=== PATIENT | male | born 1995 | race Caucasian/White ===

== ENCOUNTER 2017-03-03 15:12 | Emergency (ER) | payer MEDICAID ==
[~2017-03-03] VITALS: Ht 180.3 cm; Wt 101.5 kg
[2017-03-03 15:22] VITALS: Ht 180.3 cm; Wt 101.5 kg
[2017-03-03] MEDS ORDERED: PRED20TA PO (16:09)
[2017-03-03] MEDS ORDERED: BEN25 PO (16:09)
[2017-03-03] MEDS ORDERED: FAMO-18 PO (16:09)
--- NOTE | 2017-03-03 16:18 | ERD ---
ER Documentation Chief Complaint Date/Time DATE: 03/03/17 TIME: 16:14 Chief Complaint GENERALIZE ITCHY RASH X4 DAYS, UNK CAUSE HPI Patient is a 21-year-old male who presents to the emergency department for generalized rash on his torso and back 4 days. Patient describes a rash to be itchy in nature. Patient states the rash is erythematous and splotchy. Patient states initially he had a small area in his right chest wall however the rash has spread. Patient reports using calamine lotion. Patient denies any new medications, creams, lotions, pets, foods or environments. Patient does recall eating a hotdog before the rash started however he stated that he has had hot dogs from the restaurant before. Patient denies any lip swelling, tongue swelling, throat closure sensation, chest tightness or difficulty breathing. ROS All systems reviewed and are negative except as per history of present illness. Medications Home Meds Active Scripts Famotidine* (Pepcid*) 20 Mg Tablet, 20 MG PO BID for 5 Days, TAB Prov:EDDIE TOURE PA-C 03/03/17 Diphenhydramine Hcl* (Benadryl*) 25 Mg Cap, 25 MG PO Q6, #30 CAP Prov:EDDIE TOURE PA-C 03/03/17 Prednisone* (Prednisone*) 20 Mg Tab, 60 MG PO DAILY for 5 Days, TAB Prov:EDDIE TOURE PA-C 03/03/17 Allergies Allergies: Coded Allergies: No Known Allergy (Unverified , 03/03/17) Physical Exam Vitals Vital Signs Date Time Temp Pulse Resp B/P Pulse Ox O2 Delivery O2 Flow Rate FiO2 03/03/17 15:22 97.2 70 20 148/80 100 Physical Exam GENERAL: Well-developed, well-nourished male. Appears in no acute distress. Speaking in full sentences. No signs of respiratory distress. HEAD: Normocephalic, atraumatic. EYES: Pupils are equally reactive bilaterally. EOMs grossly intact. No conjunctival erythema. ENT: Moist mucous membranes. No uvula deviation. No kissing tonsils. No tongue swelling. No lip swelling. Patient able to swallow secretions without any difficulty. NECK: Supple. No meningismus. Normal range of motion of the neck. LUNG: Clear to auscultation bilaterally. No rhonchi, wheezing, rales or coarse breath sounds. No stridor. HEART: Regular rate and rhythm. No murmurs, rubs or gallops. EXTREMITIES: Equal pulses bilaterally. No peripheral clubbing, cyanosis or edema. No unilateral leg swelling. NEUROLOGIC: Alert and oriented. Moving all four extremities without any difficulty. Normal speech. Steady gait. SKIN: Normal color. Warm and dry. Erythematous, raised, plaque-like lesions noted on the patient's torso and back. No swelling or warmth noted. Procedures/MDM MEDICAL DECISION MAKING: This is a 21-year-old male who presents with a rash to his torso and back 4 days. Vital signs were reviewed. Patient was afebrile. Patient had no lip swelling, tongue swelling, throat closure sensation or difficulty breathing. Skin exam reveals erythematous, plaque-like lesions on the patient's torso and back. Findings were consistent with hives. Given these findings, the patient' s presentation is most consistent with allergic reaction and hives. I have a much lower clinical concern for necrotizing fasciitis, sepsis, gangrene, Tristan- Amanuel syndrome, toxic epidural necrolysis, abscess, cellulitis, herpes zoster , viral exanthem, insect bites, fungal infection, anaphylaxis, respiratory distress, respiratory compromise or failure. PRESCRIPTIONS: Prednisone Benadryl Pepcid DISCHARGE: At this time, patient is stable for discharge and outpatient management. Strict anaphylaxis return precautions were discussed with the patient and his . I have advised the patient to avoid any new products, creams or possible allergens. I have advised the patient to avoid scratching the lesions. I have instructed the patient to follow-up with his/her primary care physician in 1-2 days. If symptoms persist, patient may need to see a sub master for further examinations and testing. I have instructed the patient to promptly return to the ER at any time for any new or worsening symptoms including increased pain, fever, redness, swelling, warmth, difficulty breathing or vomiting. The patient and/or family expressed understanding of and agreement with this plan. All questions were answered. Home care instructions were provided. Departure Diagnosis: Primary Impression: Hives Additional Impression: Rash Condition: Stable Patient Instructions: Hives Referrals: EVA RICHARD MD,PRICE CAGLE,DEREJE WALTER,CORTEZ [facility] YOU HAVE RECEIVED A MEDICAL SCREENING EXAM AND THE RESULTS INDICATE THAT YOU DO NOT HAVE A CONDITION THAT REQUIRES URGENT TREATMENT IN THE EMERGENCY DEPARTMENT. FURTHER EVALUATION AND TREATMENT OF YOUR CONDITION CAN WAIT UNTIL YOU ARE SEEN IN YOUR DOCTORS OFFICE WITHIN THE NEXT 1-2 DAYS. IT IS YOUR RESPONSIBILITY TO MAKE AN APPOINTMENT FOR FOLOW-UP CARE. IF YOU HAVE A PRIMARY DOCTOR --you should call your primary doctor and schedule an appointment IF YOU DO NOT HAVE A PRIMARY DOCTOR YOU CAN CALL OUR PHYSICIAN REFERRAL HOTLINE AT IF YOU CAN NOT AFFORD TO SEE A PHYSICIAN YOU CAN CHOSE FROM THE FOLLOWING [facility] [address] [facility] [address] [facility] [facility] [address] [facility] [address] [facility] [facility] [address] [facility]. [facility]. [address] [facility]. [facility] YOU HAVE RECEIVED A MEDICAL SCREENING EXAM AND THE RESULTS INDICATE THAT YOU DO NOT HAVE A CONDITION THAT REQUIRES URGENT TREATMENT IN THE EMERGENCY DEPARTMENT. FURTHER EVALUATION AND TREATMENT OF YOUR CONDITION CAN WAIT UNTIL YOU ARE SEEN IN YOUR DOCTORS OFFICE WITHIN THE NEXT 1-2 DAYS. IT IS YOUR RESPONSIBILITY TO MAKE AN APPOINTMENT FOR FOLOW-UP CARE. IF YOU HAVE A PRIMARY DOCTOR --you should call your primary doctor and schedule and appointment IF YOU DO NOT HAVE A PRIMARY DOCTOR YOU CAN CALL OUR PHYSICIAN REFERRAL HOTLINE AT . IF YOU CAN NOT AFFORD TO SEE A PHYSICIAN YOU CAN CHOSE FROM THE FOLLOWING [facility] INSTITUTIONS: [facility] [address] [place] [address] [facility] [address] [place] [address] [facility] [address] [place] [address] Additional Instructions: Call your primary care doctor TOMORROW for an appointment during the next 1-2 days.See the doctor sooner or return here if your condition worsens before your appointment time. Anaphylaxis return precautions discussed with the patient and his . Patient advised to return for any worsening symptoms including but not limited lip swelling, tongue swelling, throat closure sensation or difficulty breathing. EDDIE TOURE PA-C Mar 03, 2017 16:17
== END 2017-03-03 17:16 | disposition home or self-care (01) ==
LOC: FTE 15:12
DX: L50.9 Urticaria, unspecified (principal)
CPT/HCPCS: 99283

== ENCOUNTER 2018-11-19 09:45 | Emergency (ER) | payer MEDICAID, OTHER ==
[~2018-11-19] VITALS: Ht 182.9 cm; Wt 104.6 kg
[~2018-11-19 09:45] MED LIST: BEN25 PO; FAMO-96 PO; PRED20TA PO
[2018-11-19 10:13] VITALS: BP 156/79; PULSE 79; RESP 20; Ht 182.9 cm; Wt 104.6 kg
[2018-11-19] MEDS ORDERED: D-ME118S24 PO (13:52)
--- NOTE | 2018-11-19 13:54 | ERD ---
ER Documentation Chief Complaint Chief Complaint Complains of cough, cold and congestion x 3 days HPI 23-year-old male presents for cough and cold symptoms for 3 days. Cough noted to be dry. Denies chest pain or shortness of breath per denies any fevers. Denies nausea or vomiting. No significant past medical history. ROS All systems reviewed and are negative except as per history of present illness. Medications Home Meds Active Scripts D-Methorphan Hb/P-Epd HCl/Bpm (Uwkwiznhzn-Apjorxnhmob-Vp Syr) 118 Ml Syrup, 5 ML PO Q4H PRN for COUGH for 10 Days, #1 BOTTLE Prov:PRICE MEDELLIN DO 11/19/18 Famotidine* (Pepcid*) 20 Mg Tablet, 20 MG PO BID for 5 Days, TAB Prov:EDDIE TOURE PA-C 03/03/17 Diphenhydramine Hcl* (Benadryl*) 25 Mg Cap, 25 MG PO Q6, #30 CAP Prov:EDDIE TOURE PA-C 03/03/17 Prednisone* (Prednisone*) 20 Mg Tab, 60 MG PO DAILY for 5 Days, TAB Prov:EDDIE TOURE PA-C 03/03/17 Allergies Allergies: Coded Allergies: No Known Allergy (Unverified , 03/03/17) PMhx/Soc Medical and Surgical Hx: pt denies Medical Hx, pt denies Surgical Hx Hx Alcohol Use: Yes Hx Substance Use: No Hx Tobacco Use: No Smoking Status: Never smoker Physical Exam Vitals Vital Signs Date Temp Pulse Resp B/P (MAP) Pulse Ox O2 O2 Flow FiO2 Time Delivery Rate 11/19/18 98.8 79 20 156/79 99 10:13 (104) Physical Exam Const: No acute distress Head: Atraumatic Eyes: Normal Conjunctiva ENT: Normal External Ears, bilateral tympanic membrane intact without erythema or bulging noted, nose and Mouth examination normal, no tonsillar swelling or exudate noted Neck: Full range of motion. No meningismus. Resp: Clear to auscultation bilaterally, no wheezing, rales, rhonchi Cardio: Regular rate and rhythm, no murmurs Skin: No petechiae or rashes Ext: No cyanosis, or edema Neur: Awake and alert Psych: Normal Mood and Affect Procedures/MDM Medical Decision Making: Differential diagnosis includes but not limited to upper respiratory infection, pneumonia, sepsis, meningitis. Patient appeared well on physical examination, nontoxic appearing. Lungs were clear to auscultation bilaterally. There is low suspicion for pneumonia, sepsis, meningitis. Patient likely has an upper respiratory infection, likely viral. Therefore antibiotics not indicated. Discussed symptomatic treatment with patient who agrees with plan. Patient given prescription for supportive medications. Patient advised to follow up with PCP in 1-2 days. Patient advised to return to ED for new or worsening symptoms. Patient stable on discharge from the ED. Disclaimer: Inadvertent spelling and grammatical errors are likely due to EHR/dictation software use and do not reflect on the overall quality of patient care. Also, please note that the electronic time recorded on this note does not necessarily reflect the actual time of the patient encounter. Departure Diagnosis: Primary Impression: URI (upper respiratory infection) Condition: Fair Patient Instructions: Preventing Common Respiratory Infections Referrals: [facility] YOU HAVE RECEIVED A MEDICAL SCREENING EXAM AND THE RESULTS INDICATE THAT YOU DO NOT HAVE A CONDITION THAT REQUIRES URGENT TREATMENT IN THE EMERGENCY DEPARTMENT. FURTHER EVALUATION AND TREATMENT OF YOUR CONDITION CAN WAIT UNTIL YOU ARE SEEN IN YOUR DOCTORS OFFICE WITHIN THE NEXT 1-2 DAYS. IT IS YOUR RESPONSIBILITY TO MAKE AN APPOINTMENT FOR FOLOW-UP CARE. IF YOU HAVE A PRIMARY DOCTOR --you should call your primary doctor and schedule an appointment IF YOU DO NOT HAVE A PRIMARY DOCTOR YOU CAN CALL OUR PHYSICIAN REFERRAL HOTLINE AT IF YOU CAN NOT AFFORD TO SEE A PHYSICIAN YOU CAN CHOSE FROM THE FOLLOWING [facility] [address] [facility]. [facility] [address] [facility] [address] [facility] [address] [facility]. [facility] [address] [facility]. [facility]. [address] Additional Instructions: Call your primary care doctor TOMORROW for an appointment during the next 1-2 days.See the doctor sooner or return here if your condition worsens before your appointment time. PRICE MEDELLIN DO Nov 19, 2018 13:54
== END 2018-11-19 14:12 | disposition home or self-care (01) ==
LOC: FTE 09:45
DX: J06.9 Acute upper respiratory infection, unspecified (principal)
CPT/HCPCS: 99282